=== PATIENT | female | born 1975 | race Caucasian/White ===

== ENCOUNTER 2020-02-18 16:19 | Emergency (ER) | payer OTHER ==
[~2020-02-18] VITALS: Ht 149.9 cm; Wt 66.2 kg
--- NOTE | 2020-02-18 17:27 | REPVR ---
PROCEDURE INFORMATION: Exam: XR Chest, 2 Views Exam date and time: 02/18/2020 5:16 PM Age: 44 years old Clinical indication: Other: Left rib pain; Additional info: Trauma TECHNIQUE: Imaging protocol: XR of the chest Views: 2 views. COMPARISON: No relevant prior studies available. FINDINGS: Lungs: Unremarkable. No consolidation. Pleural space: Unremarkable. No pleural effusion. No pneumothorax. Heart/Mediastinum: Unremarkable. No cardiomegaly. Bones/joints: Unremarkable. IMPRESSION: No acute findings. Electronically signed by: Rodolfo Zavala On 02/18/2020 17:27:49 PM
--- NOTE | 2020-02-18 17:29 | REPVR ---
PROCEDURE INFORMATION: Exam: XR Left Ribs Exam date and time: 02/18/2020 5:16 PM Age: 44 years old Clinical indication: Pain; Other: Left rib; Additional info: Fall injury TECHNIQUE: Imaging protocol: XR Left ribs. Views: 2 views. COMPARISON: No relevant prior studies available. FINDINGS: Bones/joints: Normal. Soft tissues: Normal. IMPRESSION: No acute findings. Electronically signed by: Rodolfo Zavala On 02/18/2020 17:29:20 PM
[2020-02-18] MEDS ORDERED: MORPHINE 4 MG/ML 1ML VIAL/SYRINGE (J2270) IV ONE (17:45)
[2020-02-18] MEDS ORDERED: ONDANSETRON 4MG/2ML VIAL IV ONE (18:15)
[2020-02-18 18:28] LABS: BASO # 0.1 10^3/uL (0.0-0.2); BASO % 0.6 % (0.0-1.0); EOS # 0.1 10^3/uL (0.0-0.5); EOS % 0.5 % (0.0-3.0); HEMATOCRIT 42.1 % (36.0-47.0); LYMPH % 30.8 % (24.0-44.0); MEAN CORPUSCULAR HEMOGLOBIN 33.1 pg (27.0-33.0); MEAN CORPUSCULAR HGB CONC 33.3 g/dl (32.0-36.5); MEAN CORPUSCULAR VOLUME 99.5 fl (80.0-96.0); MONO # 0.9 10^3/uL (0.0-0.8); MONO % 9.4 % (0.0-5.0); NEUTROPHILS # 5.7 10^3/uL (1.5-8.5); NEUTROPHILS % 58.4 % (36.0-66.0); PLATELET COUNT, AUTOMATED 262 10^3/uL (150-450); RED BLOOD COUNT 4.23 10^6/uL (4.00-5.40); WHITE BLOOD COUNT 9.8 10^3/uL (4.0-10.0)
[2020-02-18] MEDS ORDERED: ISOVUE-370 76% 100ML VIAL As Ordered ONE (18:54)
--- NOTE | 2020-02-18 19:27 | REPVR ---
PROCEDURE INFORMATION: Exam: CT Chest With Contrast Exam date and time: 02/18/2020 7:10 PM Age: 44 years old Clinical indication: Other: SOB, fall >5ft, XR neg, severe pain TECHNIQUE: Imaging protocol: Computed tomography of the chest with intravenous contrast. 3D rendering (Not supervised by radiologist): MIP and/or 3D reconstructed images were created by the technologist. Radiation optimization: All CT scans at this facility use at least one of these dose optimization techniques: automated exposure control; mA and/or kV adjustment per patient size (includes targeted exams where dose is matched to clinical indication); or iterative reconstruction. Contrast material: ISOVUE 370; Contrast volume: 75 ml; Contrast route: INTRAVENOUS (IV); COMPARISON: CR Chest, 2 view PA, Lat 02/18/2020 4:58 PM FINDINGS: Lungs: Unremarkable. No consolidation. No masses. Pleural space: Unremarkable. No pneumothorax. No pleural effusion. Heart: Unremarkable. No cardiomegaly. No pericardial effusion. Mediastinal space: A small hiatal hernia is present. Aorta: Unremarkable. No aortic aneurysm. Lymph nodes: Unremarkable. No enlarged lymph nodes. Liver: There is a diffuse decrease in hepatic parenchymal density, consistent with steatosis. Stomach and bowel: This patient is status post gastric bypass surgery. Bones/joints: Unremarkable. No acute fracture. Soft tissues: Unremarkable. IMPRESSION: 1. No acute intrathoracic findings. 2. This patient is status post gastric bypass surgery. 3. A small hiatal hernia is present. 4. There is a diffuse decrease in hepatic parenchymal density, consistent with steatosis. Electronically signed by: Rodolfo Zavala On 02/18/2020 19:27:11 PM
[2020-02-18] MEDS ORDERED: ASPE16CR TOP (19:54)
[2020-02-18] MEDS ORDERED: ROBA750T4 PO (19:54)
[2020-02-18] MEDS ORDERED: methocarbamoL 750 MG TAB PO ONE (20:00)
[2020-02-18 20:09] VITALS: BP 171/81
== END 2020-02-18 20:34 | disposition home or self-care (01) ==
LOC: M ED 16:19
DX: R07.81 Pleurodynia (principal); W04.XXXA Fall while being carried or supported by other persons, initial encounter; Y92.009 Unspecified place in unspecified non-institutional (private) residence as the place of occurrence of the external cause; Y93.89 Activity, other specified; Y99.8 Other external cause status; F17.210 Nicotine dependence, cigarettes, uncomplicated; Z88.5 Allergy status to narcotic agent; Z88.2 Allergy status to sulfonamides; Z88.1 Allergy status to other antibiotic agents; Z98.0 Intestinal bypass and anastomosis status
CPT/HCPCS: 36415; 71046; 71100; 71260; 80047; 85025; 96374; 96375; 99284; J2270; J2405; Q9967

== ENCOUNTER → 2020-05-16 | Outpatient (CLI) | payer OTHER ==
[~2020-05-16] MED LIST: ASPE16CR TOP; ROBA750T4 PO
[2020-05-16 14:38] LABS: BASO # 0.1 10^3/uL (0.0-0.2); BASO % 0.8 % (0.0-1.0); EOS % 0.3 % (0.0-3.0); HEMATOCRIT 39.4 % (36.0-47.0); LYMPH # 2.4 10^3/uL (1.5-5.0); LYMPH % 30.8 % (24.0-44.0); MEAN CORPUSCULAR HEMOGLOBIN 32.9 pg (27.0-33.0); MEAN CORPUSCULAR VOLUME 99.7 fl (80.0-96.0); MONO # 0.9 10^3/uL (0.0-0.8); MONO % 11.2 % (0.0-5.0); NEUTROPHILS # 4.4 10^3/uL (1.5-8.5); PLATELET COUNT, AUTOMATED 353 10^3/uL (150-450); RED BLOOD COUNT 3.95 10^6/uL (4.00-5.40); WHITE BLOOD COUNT 7.9 10^3/uL (4.0-10.0)
[2020-05-16 14:42] LABS: ALBUMIN 4.1 GM/DL (3.2-5.2); ALT/SGPT 27 U/L (12-78); BILIRUBIN,TOTAL 0.3 MG/DL (0.2-1.0); BLOOD UREA NITROGEN 9 MG/DL (7-18); CALCIUM LEVEL 9.7 MG/DL (8.5-10.1); CARBON DIOXIDE LEVEL 31 MEQ/L (21-32); CHLORIDE LEVEL 99 MEQ/L (98-107); CHOLESTEROL LEVEL 220 MG/DL (<200); CHOLESTEROL RISK RATIO 1.818 (<5); CREATININE FOR GFR 0.71 MG/DL (0.55-1.30); FERRITIN 50 NG/ML (8-252); GLOMERULAR FILTRATION RATE > 60.0 (>58); GLUCOSE, FASTING 100 MG/DL (70-100); HDL CHOLESTEROL 121 MG/DL (>40); IRON (FE) 83 UG/DL (50-170); LDL CHOLESTEROL 84 MG/DL (<100); NON-HDL-C 99 MG/DL; SODIUM LEVEL 137 MEQ/L (136-145); THYROID STIMULATING HORMONE 0.676 uIU/ML (0.358-3.740); TOTAL PROTEIN 7.4 GM/DL (6.4-8.2); TRIGLYCERIDES LEVEL 75 MG/DL (<150)
[2020-05-16 14:44] LABS: FOLATE 8.3 NG/ML (>5.4); TOTAL 25(OH) VITAMIN D 28.4 NG/ML (30.0-100.0); VITAMIN B12 LEVEL 699 PG/ML (247-911)
== END ==
LOC: M WUC 11:26
PROVIDERS: ATTEND Family Medicine
DX: I10 Essential (primary) hypertension (principal)

== ENCOUNTER 2020-12-03 11:17 | Emergency (ER) | payer OTHER ==
[~2020-12-03] VITALS: Ht 149.9 cm; Wt 63.9 kg
[2020-12-03] MEDS ORDERED: ESCITALOPRAM (11:45)
[2020-12-03] MEDS ORDERED: LOSA100T5 (11:45)
[2020-12-03] MEDS ORDERED: ALPR1TAB3 (11:45)
[2020-12-03] MEDS ORDERED: AMLO1TAB24 (11:45)
[2020-12-03] MEDS ORDERED: BUPR150T12 (11:45)
[2020-12-03] MEDS ORDERED: ACET-683 PO (12:03)
[2020-12-03 12:19] LABS: BASO # 0.1 10^3/uL (0.0-0.2); BASO % 0.7 % (0.0-1.0); EOS % 0.3 % (0.0-3.0); HEMATOCRIT 38.5 % (36.0-47.0); HEMOGLOBIN 13.3 g/dl (12.0-15.5); LYMPH # 2.1 10^3/uL (1.5-5.0); LYMPH % 20.6 % (24.0-44.0); MEAN CORPUSCULAR HEMOGLOBIN 33.8 pg (27.0-33.0); MEAN CORPUSCULAR HGB CONC 34.5 g/dl (32.0-36.5); MONO # 1.2 10^3/uL (0.0-0.8); NEUTROPHILS # 6.6 10^3/uL (1.5-8.5); NEUTROPHILS % 66.1 % (36.0-66.0); PLATELET COUNT, AUTOMATED 320 10^3/uL (150-450); RED BLOOD COUNT 3.93 10^6/uL (4.00-5.40)
[2020-12-03 12:48] LABS: BLOOD UREA NITROGEN 12 MG/DL (7-18); CALCIUM LEVEL 8.9 MG/DL (8.5-10.1); CARBON DIOXIDE LEVEL 33 MEQ/L (21-32); CHLORIDE LEVEL 99 MEQ/L (98-107); CREATININE FOR GFR 0.63 MG/DL (0.55-1.30); GLOMERULAR FILTRATION RATE > 60.0 (>58); GLUCOSE, FASTING 101 MG/DL (70-100); POTASSIUM SERUM 3.2 MEQ/L (3.5-5.1); SODIUM LEVEL 136 MEQ/L (136-145)
[2020-12-03 12:50] LABS: MONO SCRN NEGATIVE (NEGATIVE)
[2020-12-03] MEDS ORDERED: NS 1,000 ML IV ONE (13:05)
[2020-12-03] MEDS ORDERED: ISOVUE-370 76% 100ML VIAL As Ordered ONE (13:18)
[2020-12-03 13:25] LABS: ALBUMIN 4.1 GM/DL (3.2-5.2); ALT/SGPT 23 U/L (12-78); BILIRUBIN,DIRECT 0.1 MG/DL (0.0-0.2); BILIRUBIN,TOTAL 0.4 MG/DL (0.2-1.0); LIPASE 44 U/L (73-393); TOTAL PROTEIN 7.5 GM/DL (6.4-8.2)
--- NOTE | 2020-12-03 13:54 | REP ---
INDICATION: luq pain. COMPARISON: None TECHNIQUE: Axial contrast-enhanced images from the lung bases to the pubic symphysis using 100 cc Isovue 370 intravenous contrast material. Coronal and sagittal reformations obtained. This CT examination was performed using the following dose reduction techniques: Automated exposure control, adjustment of mA and/or kv according to the patient's size, and the use of iterative reconstruction technique. FINDINGS: Liver, spleen, pancreas, gallbladder, bilateral adrenal glands and kidneys are normal. Evidence for prior gastric bypass surgery noted. No bowel obstruction or acute inflammatory process. Normal terminal ileum and appendix are identified in the right lower quadrant. Scattered sigmoid diverticula noted without acute diverticulitis. Pelvis demonstrates normal bladder and prior hysterectomy. No ascites. No free air. No intraperitoneal or retroperitoneal adenopathy. Abdominal aorta and vasculature appear normal. Musculoskeletal structures are intact and without acute osseous abnormality. IMPRESSION: No acute abdominopelvic pathology appreciated. Evidence for prior gastric bypass surgery and hysterectomy. No ascites, focal inflammatory stranding, adenopathy, or free air. <Electronically signed by Adam Jenkins > 12/03/20 [id number]
[2020-12-03] MEDS ORDERED: ACETAMINOPHEN 500 MG TAB PO ONE (14:25)
[2020-12-03 16:56] VITALS: BP 172/89
== END 2020-12-03 17:01 | disposition home or self-care (01) ==
LOC: M ED 11:17
DX: E87.6 Hypokalemia (principal); J02.9 Acute pharyngitis, unspecified; B34.8 Other viral infections of unspecified site; I10 Essential (primary) hypertension; K22.70 Barrett's esophagus without dysplasia; Z79.899 Other long term (current) drug therapy; Z88.2 Allergy status to sulfonamides; Z88.5 Allergy status to narcotic agent; Z88.8 Allergy status to other drugs, medicaments and biological substances
CPT/HCPCS: 74177; 80048; 80076; 81001; 83690; 85025; 86308; 96360; 96361; 99284; Q9967

== ENCOUNTER 2020-12-09 09:03 | Emergency (ER) | payer OTHER ==
[~2020-12-09] VITALS: Ht 124.5 cm; Wt 63.3 kg
[~2020-12-09 09:03] MED LIST changes: +ACET-683 PO; +ALPR1TAB3; +AMLO1TAB24; +BUPR150T12; +ESCITALOPRAM; +LOSA100T5
[2020-12-09] MEDS ORDERED: ZINC220CA PO (09:44)
[2020-12-09] MEDS ORDERED: LEXA1TAB2 PO (09:44)
[2020-12-09] MEDS ORDERED: THERTAB52 PO (09:44)
[2020-12-09] MEDS ORDERED: CALCIUM (09:44)
[2020-12-09 11:35] LABS: BASO # 0.1 10^3/uL (0.0-0.2); BASO % 0.7 % (0.0-1.0); EOS % 0.4 % (0.0-3.0); HEMATOCRIT 45.8 % (36.0-47.0); HEMOGLOBIN 15.6 g/dl (12.0-15.5); LYMPH % 27.5 % (24.0-44.0); MEAN CORPUSCULAR HEMOGLOBIN 33.4 pg (27.0-33.0); MEAN CORPUSCULAR HGB CONC 34.1 g/dl (32.0-36.5); MEAN CORPUSCULAR VOLUME 98.1 fl (80.0-96.0); MONO # 0.9 10^3/uL (0.0-0.8); MONO % 12.3 % (2.0-8.0); NEUTROPHILS # 4.3 10^3/uL (1.5-8.5); PLATELET COUNT, AUTOMATED 348 10^3/uL (150-450); RED BLOOD COUNT 4.67 10^6/uL (4.00-5.40); WHITE BLOOD COUNT 7.3 10^3/uL (4.0-10.0)
[2020-12-09 12:06] LABS: BLOOD UREA NITROGEN 12 MG/DL (7-18); CALCIUM LEVEL 9.6 MG/DL (8.5-10.1); CARBON DIOXIDE LEVEL 32 MEQ/L (21-32); CHLORIDE LEVEL 98 MEQ/L (98-107); CREATININE FOR GFR 0.62 MG/DL (0.55-1.30); GLOMERULAR FILTRATION RATE > 60.0 (>58); GLUCOSE, FASTING 92 MG/DL (70-100); POTASSIUM SERUM 3.8 MEQ/L (3.5-5.1); SODIUM LEVEL 137 MEQ/L (136-145)
[2020-12-09 12:07] LABS: ALBUMIN 4.1 GM/DL (3.2-5.2); ALT/SGPT 30 U/L (12-78); BILIRUBIN,TOTAL 0.2 MG/DL (0.2-1.0); LIPASE 44 U/L (73-393); TOTAL PROTEIN 8.3 GM/DL (6.4-8.2)
[2020-12-09] MEDS ORDERED: NS 1,000 ML IV ONE (12:15)
[2020-12-09 12:19] LABS: HCG, SERUM QUALITATIVE NEGATIVE (NEGATIVE)
[2020-12-09] MEDS: GASTROGRAFIN SOLUTION 30ML PO SCH ×2 (13:34→14:11)
[2020-12-09 14:13] LABS: MONO SCRN NEGATIVE (NEGATIVE)
[2020-12-09] MEDS ORDERED: ISOVUE-370 76% 100ML VIAL As Ordered ONE (14:52)
--- NOTE | 2020-12-09 15:19 | REP ---
INDICATION: abd pain. COMPARISON: 12/03/2020 a contrast enhanced exam. TECHNIQUE: Standard helical technique after the intravenous administration of 100 cc Isovue 370 and oral bowel preparatory contrast administration. FINDINGS: The lung bases are clear and unchanged. The liver, gallbladder, spleen, pancreas, adrenal glands, and kidneys are unchanged and again seen to be within normal limits. The abdominal aorta and para-aortic regions are unchanged and again seen to be within normal limits. The bowel loops and the mesenteries are again seen to be within normal limits. There is no free fluid or free air. Status post bariatric surgery with postoperative changes seen in the left upper quadrant. Bone window technique throughout the examination shows no change in the osseous structures. They are stable and intact. IMPRESSION: There is no evidence of acute disease or significant change compared to the prior exam with findings as described above. <Electronically signed by Jose James > 12/09/20 [id number]
[2020-12-09] MEDS ORDERED: ERYT5OIN25 OP (15:39)
[2020-12-09 16:24] VITALS: BP 138/67
[2020-12-10 17:07] LABS: Lyme Disease IgG/IgM Antibodie <0.91 ISR (0.00-0.90); Lyme Disease IgM Ab Quantitati <0.80 index (0.00-0.79)
== END 2020-12-09 16:26 | disposition home or self-care (01) ==
LOC: M ED 09:03
DX: R10.9 Unspecified abdominal pain (principal); H10.30 Unspecified acute conjunctivitis, unspecified eye; Z79.899 Other long term (current) drug therapy; Z88.5 Allergy status to narcotic agent; Z88.1 Allergy status to other antibiotic agents; Z88.2 Allergy status to sulfonamides; Z98.84 Bariatric surgery status
CPT/HCPCS: 74177; 80053; 81001; 83690; 84703; 85025; 86308; 86617; 96360; 96361; 99285; Q9963; Q9967

== ENCOUNTER → 2021-05-06 | Outpatient (CLI) | payer OTHER ==
[~2021-05-06] MED LIST changes: +CALCIUM; +ERYT5OIN25 OP; +LEXA1TAB2 PO; +THERTAB52 PO; +ZINC220CA PO
== END ==
LOC: M PAIN 13:00
PROVIDERS: ATTEND Anesthesiology
DX: M51.16 Intervertebral disc disorders with radiculopathy, lumbar region (principal); G89.29 Other chronic pain; Z86.59 Personal history of other mental and behavioral disorders; Z88.1 Allergy status to other antibiotic agents; Z88.5 Allergy status to narcotic agent; Z88.8 Allergy status to other drugs, medicaments and biological substances; Z79.899 Other long term (current) drug therapy

== ENCOUNTER → 2021-05-15 | Outpatient (CLI) | payer OTHER | LOC: M PAIN 09:00 | PROVIDERS: ATTEND Anesthesiology | DX: M51.16 Intervertebral disc disorders with radiculopathy, lumbar region (principal); Z79.891 Long term (current) use of opiate analgesic; F41.9 Anxiety disorder, unspecified; F32.A Depression, unspecified; I10 Essential (primary) hypertension; K21.9 Gastro-esophageal reflux disease without esophagitis; G47.00 Insomnia, unspecified; K58.9 Irritable bowel syndrome, unspecified; M79.10 Myalgia, unspecified site; E66.9 Obesity, unspecified; M50.30 Other cervical disc degeneration, unspecified cervical region; M50.10 Cervical disc disorder with radiculopathy, unspecified cervical region; Z79.899 Other long term (current) drug therapy; Z88.2 Allergy status to sulfonamides; Z88.5 Allergy status to narcotic agent; Z88.8 Allergy status to other drugs, medicaments and biological substances; Z68.30 Body mass index [BMI] 30.0-30.9, adult ==

== ENCOUNTER → 2021-06-02 | Outpatient (CLI) | payer OTHER | LOC: M PLAIMG 14:10 | PROVIDERS: ATTEND Anesthesiology | DX: M51.16 Intervertebral disc disorders with radiculopathy, lumbar region (principal) ==

== ENCOUNTER → 2021-08-13 | Outpatient (CLI) | payer OTHER | LOC: M PAIN 09:45 | PROVIDERS: ATTEND Nurse Practitioner Family | DX: M51.16 Intervertebral disc disorders with radiculopathy, lumbar region (principal); F41.9 Anxiety disorder, unspecified; F32.A Depression, unspecified; I10 Essential (primary) hypertension; K21.9 Gastro-esophageal reflux disease without esophagitis; K58.9 Irritable bowel syndrome, unspecified; E66.9 Obesity, unspecified; Z79.891 Long term (current) use of opiate analgesic; Z79.899 Other long term (current) drug therapy; G47.00 Insomnia, unspecified; M79.10 Myalgia, unspecified site; M50.30 Other cervical disc degeneration, unspecified cervical region; M50.10 Cervical disc disorder with radiculopathy, unspecified cervical region; Z88.2 Allergy status to sulfonamides; Z88.5 Allergy status to narcotic agent; Z88.8 Allergy status to other drugs, medicaments and biological substances; Z68.30 Body mass index [BMI] 30.0-30.9, adult ==

== ENCOUNTER → 2021-10-09 | Outpatient (CLI) | payer OTHER | LOC: M PAIN 11:00 | PROVIDERS: ATTEND Nurse Practitioner Family | DX: M51.16 Intervertebral disc disorders with radiculopathy, lumbar region (principal); G89.29 Other chronic pain; M79.10 Myalgia, unspecified site; Z86.59 Personal history of other mental and behavioral disorders; Z88.1 Allergy status to other antibiotic agents; Z88.5 Allergy status to narcotic agent; Z88.8 Allergy status to other drugs, medicaments and biological substances; Z79.899 Other long term (current) drug therapy ==

== ENCOUNTER → 2021-11-11 | Outpatient (CLI) | payer OTHER | LOC: M PAIN 13:30 | PROVIDERS: ATTEND Anesthesiology | DX: M51.16 Intervertebral disc disorders with radiculopathy, lumbar region (principal); M51.17 Intervertebral disc disorders with radiculopathy, lumbosacral region; F41.9 Anxiety disorder, unspecified; F32.A Depression, unspecified; I10 Essential (primary) hypertension; K21.9 Gastro-esophageal reflux disease without esophagitis; R51.9 Headache, unspecified; G47.00 Insomnia, unspecified; K58.9 Irritable bowel syndrome, unspecified; M79.10 Myalgia, unspecified site; M54.2 Cervicalgia; E66.9 Obesity, unspecified; Z88.2 Allergy status to sulfonamides; Z88.5 Allergy status to narcotic agent; Z88.8 Allergy status to other drugs, medicaments and biological substances; Z87.891 Personal history of nicotine dependence; Z68.29 Body mass index [BMI] 29.0-29.9, adult; Z79.891 Long term (current) use of opiate analgesic; Z79.899 Other long term (current) drug therapy ==

== ENCOUNTER → 2022-01-05 | Outpatient (CLI) | payer OTHER | LOC: M WHC 13:44 | PROVIDERS: ATTEND Family Medicine | DX: N64.59 Other signs and symptoms in breast (principal) ==

== ENCOUNTER → 2022-04-15 | Outpatient (CLI) | payer OTHER | LOC: M LABSMTC 10:35 | PROVIDERS: ATTEND Anesthesiology | DX: Z01.812 Encounter for preprocedural laboratory examination (principal); Z11.52 Encounter for screening for COVID-19 ==

== ENCOUNTER → 2022-04-20 | Outpatient (CLI) | payer OTHER ==
[~2022-04-20] MED LIST changes: +ISOVUE-M 300 61% 15ML VIAL As Ordered ONE; +LIDOCAINE 1% SDV 30ML VIAL As Ordered ONE; +MIDAZOLAM INJ 2MG/2ML VIAL (J2250 PER 1MG) As Ordered ONE; +diphenhydrAMINE 50MG/ML VIAL As Ordered ONE; +fentaNYL 100 MCG/2 ML INJECTION As Ordered ONE; +methylPREDNISolone SUSP 40MG/ML 1ML VIAL (DEPO MEDROL) As Ordered ONE
== END ==
LOC: M PAIN 09:00
PROVIDERS: ATTEND Anesthesiology
DX: M51.16 Intervertebral disc disorders with radiculopathy, lumbar region (principal); F41.9 Anxiety disorder, unspecified; F32.A Depression, unspecified; I10 Essential (primary) hypertension; K21.9 Gastro-esophageal reflux disease without esophagitis; G47.00 Insomnia, unspecified; K58.9 Irritable bowel syndrome, unspecified; M79.10 Myalgia, unspecified site; E66.9 Obesity, unspecified; M50.20 Other cervical disc displacement, unspecified cervical region; L71.9 Rosacea, unspecified; M48.02 Spinal stenosis, cervical region; M48.062 Spinal stenosis, lumbar region with neurogenic claudication; M48.07 Spinal stenosis, lumbosacral region; Z88.2 Allergy status to sulfonamides; Z88.5 Allergy status to narcotic agent; Z88.8 Allergy status to other drugs, medicaments and biological substances; Z68.30 Body mass index [BMI] 30.0-30.9, adult; Z79.891 Long term (current) use of opiate analgesic; Z79.899 Other long term (current) drug therapy
CPT/HCPCS: 62323; 99152; 99153; J1030; J1200; J2250; J3010

== ENCOUNTER → 2022-05-12 | Outpatient (CLI) | payer OTHER ==
[~2022-05-12] MED LIST changes: -ISOVUE-M 300 61% 15ML VIAL As Ordered ONE; -LIDOCAINE 1% SDV 30ML VIAL As Ordered ONE; -MIDAZOLAM INJ 2MG/2ML VIAL (J2250 PER 1MG) As Ordered ONE; -diphenhydrAMINE 50MG/ML VIAL As Ordered ONE; -fentaNYL 100 MCG/2 ML INJECTION As Ordered ONE; -methylPREDNISolone SUSP 40MG/ML 1ML VIAL (DEPO MEDROL) As Ordered ONE
== END ==
LOC: M PAIN 09:15
PROVIDERS: ATTEND Anesthesiology
DX: G89.29 Other chronic pain (principal); M51.17 Intervertebral disc disorders with radiculopathy, lumbosacral region; F41.9 Anxiety disorder, unspecified; F32.A Depression, unspecified; I10 Essential (primary) hypertension; K21.9 Gastro-esophageal reflux disease without esophagitis; G47.00 Insomnia, unspecified; K58.9 Irritable bowel syndrome, unspecified; M79.10 Myalgia, unspecified site; M50.10 Cervical disc disorder with radiculopathy, unspecified cervical region; L71.9 Rosacea, unspecified; M47.812 Spondylosis without myelopathy or radiculopathy, cervical region; M47.816 Spondylosis without myelopathy or radiculopathy, lumbar region; M47.817 Spondylosis without myelopathy or radiculopathy, lumbosacral region; K22.10 Ulcer of esophagus without bleeding; Z79.891 Long term (current) use of opiate analgesic; Z79.899 Other long term (current) drug therapy; Z88.2 Allergy status to sulfonamides; Z88.5 Allergy status to narcotic agent; Z88.8 Allergy status to other drugs, medicaments and biological substances

== ENCOUNTER → 2022-07-07 | Outpatient (CLI) | payer OTHER | LOC: M LABSMTC 11:00 | PROVIDERS: ATTEND Anesthesiology | DX: Z01.818 Encounter for other preprocedural examination (principal) ==

== ENCOUNTER → 2022-07-07 | Outpatient (CLI) | payer OTHER | LOC: M PAIN 11:45 | PROVIDERS: ATTEND Anesthesiology | DX: M51.17 Intervertebral disc disorders with radiculopathy, lumbosacral region (principal); R29.818 Other symptoms and signs involving the nervous system; F41.9 Anxiety disorder, unspecified; F32.A Depression, unspecified; I10 Essential (primary) hypertension; K21.9 Gastro-esophageal reflux disease without esophagitis; R51.9 Headache, unspecified; G47.00 Insomnia, unspecified; K58.9 Irritable bowel syndrome, unspecified; M79.10 Myalgia, unspecified site; E66.9 Obesity, unspecified; M50.20 Other cervical disc displacement, unspecified cervical region; M51.26 Other intervertebral disc displacement, lumbar region; M51.27 Other intervertebral disc displacement, lumbosacral region; M47.812 Spondylosis without myelopathy or radiculopathy, cervical region; M47.816 Spondylosis without myelopathy or radiculopathy, lumbar region; M47.817 Spondylosis without myelopathy or radiculopathy, lumbosacral region; Z79.891 Long term (current) use of opiate analgesic; Z79.899 Other long term (current) drug therapy; Z87.891 Personal history of nicotine dependence; Z88.2 Allergy status to sulfonamides; Z88.5 Allergy status to narcotic agent; Z88.8 Allergy status to other drugs, medicaments and biological substances; Z68.31 Body mass index [BMI] 31.0-31.9, adult ==

== ENCOUNTER → 2022-07-09 | Outpatient (CLI) | payer OTHER | LOC: M PLARAD 13:39 | PROVIDERS: ATTEND Anesthesiology | DX: R29.818 Other symptoms and signs involving the nervous system (principal) ==

== ENCOUNTER → 2022-07-09 | Outpatient (CLI) | payer OTHER | LOC: M SOG 08:11 | PROVIDERS: ATTEND Orthopaedic Surgery | DX: M47.817 Spondylosis without myelopathy or radiculopathy, lumbosacral region (principal) ==

== ENCOUNTER → 2022-07-13 | Outpatient (CLI) | payer OTHER | LOC: M PAIN 10:00 | PROVIDERS: ATTEND Anesthesiology | DX: M51.16 Intervertebral disc disorders with radiculopathy, lumbar region (principal); M47.816 Spondylosis without myelopathy or radiculopathy, lumbar region; G89.29 Other chronic pain; I10 Essential (primary) hypertension; M79.10 Myalgia, unspecified site; Z86.59 Personal history of other mental and behavioral disorders; Z88.1 Allergy status to other antibiotic agents; Z88.5 Allergy status to narcotic agent; Z88.8 Allergy status to other drugs, medicaments and biological substances; Z87.891 Personal history of nicotine dependence; Z79.899 Other long term (current) drug therapy ==

== ENCOUNTER → 2022-07-13 | Outpatient (CLI) | payer OTHER | LOC: M LAB 11:44 | PROVIDERS: ATTEND Anesthesiology | DX: M51.16 Intervertebral disc disorders with radiculopathy, lumbar region (principal); M51.36 Other intervertebral disc degeneration, lumbar region; M51.37 Other intervertebral disc degeneration, lumbosacral region ==

== ENCOUNTER → 2022-07-19 | Outpatient (CLI) | payer OTHER | LOC: M PAIN 15:15 | PROVIDERS: ATTEND Nurse Practitioner Family | DX: M51.16 Intervertebral disc disorders with radiculopathy, lumbar region (principal); F41.9 Anxiety disorder, unspecified; F32.A Depression, unspecified; I10 Essential (primary) hypertension; K21.9 Gastro-esophageal reflux disease without esophagitis; G47.00 Insomnia, unspecified; K58.9 Irritable bowel syndrome, unspecified; M79.10 Myalgia, unspecified site; E66.9 Obesity, unspecified; M50.10 Cervical disc disorder with radiculopathy, unspecified cervical region; M47.812 Spondylosis without myelopathy or radiculopathy, cervical region; M47.816 Spondylosis without myelopathy or radiculopathy, lumbar region; M47.817 Spondylosis without myelopathy or radiculopathy, lumbosacral region; Z79.891 Long term (current) use of opiate analgesic; Z79.899 Other long term (current) drug therapy; Z88.2 Allergy status to sulfonamides; Z88.5 Allergy status to narcotic agent; Z88.8 Allergy status to other drugs, medicaments and biological substances; Z68.31 Body mass index [BMI] 31.0-31.9, adult ==

== ENCOUNTER → 2022-09-02 | Outpatient (CLI) | payer OTHER | LOC: M PAIN 16:45 | PROVIDERS: ATTEND Anesthesiology | DX: M51.16 Intervertebral disc disorders with radiculopathy, lumbar region (principal); F41.9 Anxiety disorder, unspecified; F32.A Depression, unspecified; I10 Essential (primary) hypertension; K21.9 Gastro-esophageal reflux disease without esophagitis; R51.9 Headache, unspecified; G47.00 Insomnia, unspecified; K58.9 Irritable bowel syndrome, unspecified; E66.9 Obesity, unspecified; M50.10 Cervical disc disorder with radiculopathy, unspecified cervical region; M47.812 Spondylosis without myelopathy or radiculopathy, cervical region; M47.816 Spondylosis without myelopathy or radiculopathy, lumbar region; M47.817 Spondylosis without myelopathy or radiculopathy, lumbosacral region; K22.10 Ulcer of esophagus without bleeding; Z79.890 Hormone replacement therapy; Z79.899 Other long term (current) drug therapy; Z88.2 Allergy status to sulfonamides; Z88.5 Allergy status to narcotic agent; Z88.8 Allergy status to other drugs, medicaments and biological substances ==

== ENCOUNTER → 2022-11-12 | Outpatient (CLI) | payer OTHER ==
[~2022-11-12] MED LIST changes: +ADVI200C18 PO; +APPL300T4 PO; -ASPE16CR TOP; +CLAR10CA3 PO; +LIDO76.52 TOP; +OMEP-173 PO; +OXYC-517 PO
== END ==
LOC: M PAIN 11:15
PROVIDERS: ATTEND Nurse Practitioner Family
DX: M51.17 Intervertebral disc disorders with radiculopathy, lumbosacral region (principal); F41.9 Anxiety disorder, unspecified; F32.A Depression, unspecified; I10 Essential (primary) hypertension; K21.9 Gastro-esophageal reflux disease without esophagitis; G47.00 Insomnia, unspecified; K58.9 Irritable bowel syndrome, unspecified; M51.16 Intervertebral disc disorders with radiculopathy, lumbar region; M79.10 Myalgia, unspecified site; M54.2 Cervicalgia; E66.9 Obesity, unspecified; M50.10 Cervical disc disorder with radiculopathy, unspecified cervical region; M47.812 Spondylosis without myelopathy or radiculopathy, cervical region; M47.816 Spondylosis without myelopathy or radiculopathy, lumbar region; M47.817 Spondylosis without myelopathy or radiculopathy, lumbosacral region; Z68.31 Body mass index [BMI] 31.0-31.9, adult; Z88.2 Allergy status to sulfonamides; Z88.5 Allergy status to narcotic agent; Z88.8 Allergy status to other drugs, medicaments and biological substances; Z79.891 Long term (current) use of opiate analgesic; Z79.899 Other long term (current) drug therapy

== ENCOUNTER 2022-11-18 10:34 | Day surgery (SDC) | payer OTHER ==
[~2022-11-18] VITALS: Ht 149.9 cm; Wt 78.3 kg
[2022-11-18] MEDS: NS 1,000 ML IV ONE (11:04)
[2022-11-18] MEDS ORDERED: LIDOCAINE 2% 100MG/5ML SDV (FOR ANES.) As Ordered ONE (12:38)
[2022-11-18] MEDS ORDERED: propofoL 200 MG/20 ML VIAL As Ordered ONE ×3 (12:38→13:11)
[2022-11-18] MEDS ORDERED: fentaNYL 100 MCG/2 ML INJECTION As Ordered ONE (13:05)
[2022-11-18] MEDS ORDERED: ONDANSETRON 4MG 2ML VIAL As Ordered ONE (13:08)
[2022-11-18 13:23] VITALS: TEMP 97.5
[2022-11-18 13:40] VITALS: BP 163/81; O2SAT 95
== END 2022-11-18 13:51 | disposition home or self-care (01) ==
LOC: M OPP 10:34
PROVIDERS: ATTEND Internal Medicine Gastroenterology
DX: Z12.11 Encounter for screening for malignant neoplasm of colon (principal); K64.8 Other hemorrhoids; Q63.8 Other specified congenital malformations of kidney; I10 Essential (primary) hypertension; E78.5 Hyperlipidemia, unspecified; K21.9 Gastro-esophageal reflux disease without esophagitis; M19.90 Unspecified osteoarthritis, unspecified site; F41.9 Anxiety disorder, unspecified; F17.210 Nicotine dependence, cigarettes, uncomplicated; F17.290 Nicotine dependence, other tobacco product, uncomplicated; Z88.2 Allergy status to sulfonamides; Z88.5 Allergy status to narcotic agent; Z88.8 Allergy status to other drugs, medicaments and biological substances; Z79.899 Other long term (current) drug therapy; Z80.6 Family history of leukemia; Z82.49 Family history of ischemic heart disease and other diseases of the circulatory system; Z80.1 Family history of malignant neoplasm of trachea, bronchus and lung
CPT/HCPCS: 45378; J2405; J3010

== ENCOUNTER → 2022-12-17 | Outpatient (CLI) | payer OTHER | LOC: M PAIN 11:00 | PROVIDERS: ATTEND Nurse Practitioner Family | DX: M79.18 Myalgia, other site (principal); F41.9 Anxiety disorder, unspecified; F32.A Depression, unspecified; K21.9 Gastro-esophageal reflux disease without esophagitis; G47.00 Insomnia, unspecified; K58.9 Irritable bowel syndrome, unspecified; M54.16 Radiculopathy, lumbar region; E66.9 Obesity, unspecified; M50.10 Cervical disc disorder with radiculopathy, unspecified cervical region; M47.812 Spondylosis without myelopathy or radiculopathy, cervical region; M47.816 Spondylosis without myelopathy or radiculopathy, lumbar region; M47.817 Spondylosis without myelopathy or radiculopathy, lumbosacral region; Z87.891 Personal history of nicotine dependence; Z79.891 Long term (current) use of opiate analgesic; Z79.899 Other long term (current) drug therapy; Z88.2 Allergy status to sulfonamides; Z88.5 Allergy status to narcotic agent; Z88.8 Allergy status to other drugs, medicaments and biological substances; Z68.33 Body mass index [BMI] 33.0-33.9, adult ==

== ENCOUNTER → 2023-01-28 | Outpatient (CLI) | payer OTHER | LOC: M PAIN 11:45 | PROVIDERS: ATTEND Nurse Practitioner Family | DX: M51.17 Intervertebral disc disorders with radiculopathy, lumbosacral region (principal); G89.29 Other chronic pain; F41.9 Anxiety disorder, unspecified; F32.A Depression, unspecified; I10 Essential (primary) hypertension; K21.9 Gastro-esophageal reflux disease without esophagitis; G47.00 Insomnia, unspecified; K58.9 Irritable bowel syndrome, unspecified; M54.2 Cervicalgia; M79.10 Myalgia, unspecified site; M47.812 Spondylosis without myelopathy or radiculopathy, cervical region; M47.816 Spondylosis without myelopathy or radiculopathy, lumbar region; M47.817 Spondylosis without myelopathy or radiculopathy, lumbosacral region; L71.9 Rosacea, unspecified; F17.290 Nicotine dependence, other tobacco product, uncomplicated; Z79.891 Long term (current) use of opiate analgesic; Z79.899 Other long term (current) drug therapy; Z88.2 Allergy status to sulfonamides; Z88.5 Allergy status to narcotic agent; Z88.8 Allergy status to other drugs, medicaments and biological substances ==

== ENCOUNTER → 2023-03-31 | Outpatient (CLI) | payer OTHER | LOC: M WHC 14:40 | PROVIDERS: ATTEND Family Medicine | DX: Z12.31 Encounter for screening mammogram for malignant neoplasm of breast (principal) ==

== ENCOUNTER → 2023-05-03 | Outpatient (CLI) | payer OTHER | LOC: M PAIN 09:15 | PROVIDERS: ATTEND Nurse Practitioner Family | DX: M51.16 Intervertebral disc disorders with radiculopathy, lumbar region (principal); G89.29 Other chronic pain; F41.9 Anxiety disorder, unspecified; F32.A Depression, unspecified; I10 Essential (primary) hypertension; K21.9 Gastro-esophageal reflux disease without esophagitis; G47.00 Insomnia, unspecified; K58.9 Irritable bowel syndrome, unspecified; M79.10 Myalgia, unspecified site; M54.2 Cervicalgia; M50.10 Cervical disc disorder with radiculopathy, unspecified cervical region; E66.9 Obesity, unspecified; Z88.5 Allergy status to narcotic agent; Z88.8 Allergy status to other drugs, medicaments and biological substances; Z88.2 Allergy status to sulfonamides; Z68.33 Body mass index [BMI] 33.0-33.9, adult ==

== ENCOUNTER → 2023-08-31 | Outpatient (CLI) | payer OTHER ==
[2023-08-31 14:10] LABS: HEMATOCRIT 38.9 % (36.0-47.0); HEMOGLOBIN 12.9 g/dl (12.0-15.5); MEAN CORPUSCULAR HEMOGLOBIN 30.8 pg (27.0-33.0); MEAN CORPUSCULAR HGB CONC 33.2 g/dl (32.0-36.5); MEAN CORPUSCULAR VOLUME 92.8 fl (80.0-96.0); PLATELET COUNT, AUTOMATED 383 10^3/uL (150-450); RED BLOOD COUNT 4.19 10^6/uL (4.00-5.40); WHITE BLOOD COUNT 9.6 10^3/uL (4.0-10.0)
[2023-08-31 14:49] LABS: THYROID STIMULATING HORMONE 2.267 uIU/ML (0.55-4.78)
[2023-08-31 14:50] LABS: IRON (FE) 124 UG/DL (50-170)
[2023-08-31 14:54] LABS: ALBUMIN 3.8 G/DL (3.2-5.2); ALKALINE PHOSPHATASE 82 U/L (46-116); ALT/SGPT 23 U/L (7.0-40); AST/SGOT 18 U/L (<34); BILIRUBIN,TOTAL 0.4 MG/DL (0.3-1.2); BLOOD UREA NITROGEN 11 MG/DL (9-23); CALCIUM LEVEL 9.8 MG/DL (8.5-10.1); CARBON DIOXIDE LEVEL 29 MMOL/L (20-31); CHLORIDE LEVEL 101 MMOL/L (98-107); CHOLESTEROL LEVEL 193 MG/DL (<200); CREATININE FOR GFR 0.69 MG/DL (0.55-1.30); GLOMERULAR FILTRATION RATE > 60.0 (>51); GLUCOSE, FASTING 103 MG/DL (60-100); HDL CHOLESTEROL 80.1 MG/DL (>40); LDL CHOLESTEROL 93.3 MG/DL (<100); NON-HDL-C 112.9 MG/DL; POTASSIUM SERUM 4.1 MMOL/L (3.5-5.1); SODIUM LEVEL 139 MMOL/L (136-145); TOTAL PROTEIN 7.4 G/DL (5.7-8.2); TRIGLYCERIDES LEVEL 98 MG/DL (<150)
== END ==
LOC: M PLALAB 09:37
PROVIDERS: ATTEND Family Medicine
DX: I10 Essential (primary) hypertension (principal)

== ENCOUNTER → 2023-09-08 | Outpatient (CLI) | payer OTHER | LOC: M PAIN 17:30 | PROVIDERS: ATTEND Nurse Practitioner Family | DX: M51.16 Intervertebral disc disorders with radiculopathy, lumbar region (principal); Z79.891 Long term (current) use of opiate analgesic; Z79.899 Other long term (current) drug therapy; Z87.891 Personal history of nicotine dependence; Z88.2 Allergy status to sulfonamides; Z88.5 Allergy status to narcotic agent ==

== ENCOUNTER → 2024-02-09 | Outpatient (CLI) | payer BC | LOC: M PAIN 14:00 | PROVIDERS: ATTEND Nurse Practitioner Family | DX: M51.17 Intervertebral disc disorders with radiculopathy, lumbosacral region (principal); G89.29 Other chronic pain; F41.9 Anxiety disorder, unspecified; F32.A Depression, unspecified; I10 Essential (primary) hypertension; K21.9 Gastro-esophageal reflux disease without esophagitis; Z88.2 Allergy status to sulfonamides; Z88.5 Allergy status to narcotic agent; Z88.8 Allergy status to other drugs, medicaments and biological substances; Z79.891 Long term (current) use of opiate analgesic; Z79.899 Other long term (current) drug therapy ==

== ENCOUNTER → 2024-04-04 | Outpatient (CLI) | payer BC | LOC: M WHC 13:45 | PROVIDERS: ATTEND Family Medicine | DX: Z12.31 Encounter for screening mammogram for malignant neoplasm of breast (principal); R92.323 Mammographic fibroglandular density, bilateral breasts ==

== ENCOUNTER → 2025-04-10 | Outpatient (CLI) | payer OTHER | LOC: M WHC 12:03 | PROVIDERS: ATTEND Family Medicine | DX: Z12.31 Encounter for screening mammogram for malignant neoplasm of breast (principal) ==